=== PATIENT | female | born 1990 | race African-American/Black ===

== ENCOUNTER 2016-05-15 07:04 | Emergency (ER) | payer MEDICAID, OTHER ==
[2016-05-15 08:06] LABS: Bilirubin Negative (Negative); Blood, Urine Trace (Negative); Clarity Clear (Clear); Glucose, Urine (Dipstick) Negative (Negative); Leukocyte Small (Negative); Nitrite Negative (Negative); Protein, Urine (Dipstick) Negative (Neg-Trace); Specific Gravity, Urine 1.015 (1.005-1.030); Urobilinogen 0.2 mg/dL (0.2-1.0)
[2016-05-15 08:07] LABS: Wet Prep Clue Cells Clue Cells Absent (None Seen); Wet Prep Pathologist Review Spermatozoa Absent (None Seen); Wet Prep Spermatozoa 2nd Revie Agree with result (None Seen); Wet Prep Trichomonas Trichomonas PRESENT (None Seen)
[2016-05-15 08:08] LABS: Bacteria/HPF Rare-Few HPF (None Seen); RBC/HPF 0-3 HPF (0-3)
[2016-05-15 08:09] LABS: Pregnancy Test - Urine (BHCG) NEGATIVE (NEGATIVE); Pregu Control Background? CLEAR/WHITE (CLR/WHITE); Pregu Control Bar Appear? YES (CONTROL BAR)
[2016-05-15 08:10] LABS: Specific Gravity 1.015 (1.002-1.036)
[2016-05-15] MEDS ORDERED: cefTRIAXone\\ROCEPHIN 250 MG VIAL ONE (08:23)
[2016-05-15] MEDS ORDERED: metroNIDAZOLE 250 MG TAB ONE (08:23)
[2016-05-15] MEDS ORDERED: Azithromycin 250 MG TAB ONE (08:23)
[2016-05-15] MEDS ORDERED: Lidocaine 1% 20 ML MDV ONE (08:30)
--- NOTE | 2016-05-15 09:15 | ERRECORD ---
[facility] EMERGENCY RECORD HPI VAGINAL DISCHARGE (07:33 ABUS) CHIEF COMPLAINT: Patient presents for evaluation of vaginal discharge, Patient presents for evaluation of vaginal itching. HISTORIAN: History provided by patient, 26 yr old F with vaginal itching, yellowish color d/c, and pain at the opening. Denies any F/, N/V, rash, joint pain or swelling. Sexually active with 2 people both unprotected sex. No prior history of STDs. LOCATION: Symptoms are localized, Vaginal opening. QUALITY: Discharge described as, small amount, of yellow discharge, with pruritis, with foul odor, Pain is dull in nature, described as aching. SEVERITY: Currently symptoms are mild. TIME COURSE: There has been no change in the patient's symptoms over time, are constant. ASSOCIATED WITH: No associated symptoms. EXACERBATED BY: Patient's condition exacerbated by nothing. RELIEVED BY: Patient's condition relieved by nothing. ROS (07:35 ABUS) CONSTITUTIONAL: Negative constitutional review of systems, Historian denies chills, denies fever. CARDIOVASCULAR: Negative cardiovascular review of systems, Historian denies chest pain, denies palpitations. RESPIRATORY: Negative respiratory review of systems, Historian denies cough, denies shortness of breath. GI: Negative gastrointestinal review of systems, Historian denies abdominal pain, denies constipation, denies diarrhea, denies nausea, denies vomiting. GENITOURINARY FEMALE: Historian denies dysuria, denies frequency, reports vaginal discharge, reports vaginal itching. SKIN: Negative skin review of systems, Historian denies rash, denies skin changes. NEUROLOGIC: Negative neurologic review of systems, Historian denies headache. HEMO/LYMPHATIC: Normal hematologic/lymphatic system review, Historian denies abnormal blood clotting. PAST MEDICAL HISTORY (07:15 SFRE) MEDICAL HISTORY: Flu vaccine not up to date, Tetanus not up to date, Pneumococcal vaccine not up to date, Flu vaccine up to date, Date of immunization: 12/2014, Tetanus immunization up to date, Pneumococcal vaccine not up to date, Seizure history but not on medication. FEMALE SURGICAL HISTORY: VERIFIED 05-16-16, Surgical history of section, Date of surgery 2012, 2013,2014. PSYCHIATRIC HISTORY: Notes: VERIIED 05-16-16, No previous psychiatric history.BIPOLAR, SCHIZOPHRENIC. &a-1R&a+25V*p+0X*[id number]*c202B*c15G*c2P*p-0X&a-25V&a+1R Name: Clint Cueva : 1990 F26 MedRec: [id number] AcctNum: [id number] Prepared: SunMay 15, 2016 14:02 by Interface Page 1 of 4 pMD [facility] EMERGENCY RECORD SOCIAL HISTORY: Patient denies alcohol use, Patient denies drug use, Patient has no smoking history, Patient denies alcohol use, Patient denies drug use, Patient has no smoking history, Lives at home, with family, Patient denies alcohol use, Patient denies drug use, Patient has no smoking history. KNOWN ALLERGIES No Known Allergies (Unconfirmed) No Known Drug Allergies CURRENT MEDICATIONS (07:16 SFRE) None VITAL SIGNS VITAL SIGNS: BP: 107/66, Pulse: 80, Resp: 14, Temp: 98.4 (Oral), O2 sat: 100 on Room Air, Time: 05/15/2016 07:13. (07:13 SFRE) BP: 110/70, Pulse: 70, Resp: 14, Temp: 98.4, O2 sat: 100 on RA, Time: 05/15/2016 09:00. (09:00 JPER) PHYSICAL EXAM CONSTITUTIONAL: Vital signs reviewed, Patient afebrile, Pulse normal, Blood pressure normal, Respiratory rate normal, Patient appears non toxic, Patient appears pain free, Patient alert and oriented to person, place and time. (07:35 ABUS) NECK: Neck exam normal, Neck exam included findings of normal range of motion, Trachea midline, no meningeal signs, no cervical adenopathy, no tenderness. (07:35 ABUS) RESPIRATORY CHEST: Respiratory and chest exam normal, Respiratory exam included findings of no respiratory distress, Breath sounds clear. (07:35 ABUS) CARDIOVASCULAR: Cardiovascular assessment normal, Cardiovascular exam included findings of heart rate regular rate and rhythm, Heart sounds normal. (07:35 ABUS) ABDOMEN FEMALE: Abdominal exam included findings of abdomen nontender, Bowel sounds normal, no distension, no mass, no pulsatile masses, no peritoneal signs, no rigidity, no guarding, no rebound, Rovsing's sign absent. (07:35 ABUS) GENITOURINARY FEMALE: External genitalia normal, Genitourinary exam included findings of external genitalia normal, vaginal mucosa normal, Discharge present, white in color, small amount, + CMT but no adnexal tenderness; os appears normal. No vesicles. (07:36 ABUS) BACK: Back exam normal, Back exam included findings of normal inspection, range of motion normal, no tenderness. (07:35 ABUS) NEURO: Neuro exam normal, Neuro exam findings include patient oriented to person, place and time, Speech normal, Gait normal. (07:35 ABUS) SKIN: Skin exam normal, Skin exam included findings of skin warm, dry, and normal in color, no rash. (07:35 ABUS) &a-1R&a+25V*p+0X*[id number]*c202B*c15G*c2P*p-0X&a-25V&a+1R Name: Clint Cueva : 1990 F26 MedRec: [id number] AcctNum: [id number] Prepared: SunMay 15, 2016 14:02 by Interface Page 2 of 4 pMD [facility] EMERGENCY RECORD MEDICATION ADMINISTRATION SUMMARY Drug Name: Rocephin injection, Dose Ordered: 250 mg, Route: Intramuscular, Status: Given, Time: 08:33 05/15/2016, Drug Name: azithromycin oral, Dose Ordered: 1 g, Route: Oral, Status: Given, Time: 08:33 05/15/2016, Drug Name: metroNIDAZOLE oral, Dose Ordered: 500 mg, Route: Oral, Status: Given, Time: 08:32 05/15/2016, Detailed record available in Medication Service section. DOCTOR NOTES (07:36 ABUS) TEXT: 26 yr old F with vaginal itching, yellowish color d/c, and pain at the opening. Denies any F/, N/V, rash, joint pain or swelling. Sexually active with 2 people both unprotected sex. DDX: Gonorrhea, Chlamydia, Herpes, Cystitis, Urinary Tract Infection, Pyleonephritis, Nephrolithiasis, Urethritis, Dermatitis, Allergic Reaction PLAN: Rocephin, Azithro, Metrondizole, Flagyl, Analgesics, UA, GC PCR, wet prep DISPO: Pending results and response to treatment UPDATE/REASSESSMENT: Final Dispo: Discharge Home with regular follow up and return precautions. All results of testing and evaluation were shared with the patient who verbalized understanding and agreement with the plan of care. Level of Complexity / Medical Decision Making: Low Moderate High. PROBLEM LIST No recorded problems DIAGNOSIS (08:14 ABUS) FINAL: PRIMARY: Presumed STD, ADDITIONAL: TRICHOMONAL VULVOVAGINITIS. PRESCRIPTION (08:13 ABUS) metroNIDAZOLE oral: TABLET : 500 mg : ORAL : Quantity: 1 Unit: tab(s) Route: ORAL Schedule: 2 times a day Dispense: 14 Unit: tab(s) May substitute. Refills: No Refills . NOTES: No Refills. ibuprofen: TABLET : 800 mg : ORAL : Quantity: 800 Unit: mg Route: ORAL Schedule: every 8 hours PRN Dispense: 20 Unit: tab(s) May substitute. Refills: No Refills . NOTES: No Refills. DISPOSITION PATIENT: Disposition Type: Discharge, Disposition: *Discharge Home, Condition: Good. (08:14 ABUS) &a-1R&a+25V*p+0X*[id number]*c202B*c15G*c2P*p-0X&a-25V&a+1R Name: Clint Cueva : 1990 F26 MedRec: [id number] AcctNum: [id number] Prepared: SunMay 15, 2016 14:02 by Interface Page 3 of 4 pMD [facility] EMERGENCY RECORD Patient left the department. (09:06 NAIDA) Chinchilla: JESSICA=MD Thuy, Thom PASCAL=CANDACE Meier, Britni RAY=CANDACE Norris, Alisha &a-1R&a+25V*p+0X*[id number]*c202B*c15G*c2P*p-0X&a-25V&a+1R Name: Clint Cueva : 1990 F26 MedRec: [id number] AcctNum: [id number] Prepared: SunMay 15, 2016 14:02 by Interface Page 4 of 4 pMD [facility]
--- NOTE | 2016-05-15 09:21 | PICIS ---
[facility] EMERGENCY RECORD TRIAGE (07:15 SFRE) PATIENT: NAME: Clint Cueva, AGE: 26, GENDER: female, : Sun1990, TIME OF GREET: SunMay 15, 2016 07:05, PREFERRED LANGUAGE: Sami, RACE: Black or , ETHNICITY: Not or , FALL RISK: NO, ECODE BILLING MAP: [facility], SSN: [id number], Zip Code: [address], KG WEIGHT: 72.57, , , PERSON ID: [id number], PCP: MD AMARI, MARIAJOSE. (07:15 SFRE) PHONE: . (07:45) COMPLAINT: VAGINAL DISCHARGE. (07:15 SFRE) ADMISSION: URGENCY: 4 Non Urgent, ADMISSION SOURCE: Home, TRANSPORT: Walk-in, BED: ED -04. (07:15 SFRE) ASSESSMENT: Assessment: PT C/O VAG DISCHARGE; ITCHING; FOUL ODOR. (07:15 SFRE) PAIN: Location SORENESS TO AREA. (07:15 SFRE) SIRS SCORING: Heart Rate 55-109 (0), Temp range 96.8-101.1 (0), respiratory rate 12-24 (0), Mental Status altered: no (0). (07:15 SFRE) TRIAGE SCREENING: Patient denies suicidal ideation, Patient denies presence of domestic violence. (07:15 SFRE) LMP: Last menstrual period: 05/07/16. (07:15 SFRE) PROVIDERS: TRIAGE NURSE: Alisha Norris RN. (07:15 SFRE) VITAL SIGNS: BP 107/66, Pulse 80, Resp 14, Temp 98.4, (Oral), O2 Sat 100, on Room Air, Time 05/15/2016 07:13. (07:13 SFRE) PREVIOUS VISIT ALLERGIES: No Known Drug Allergies. (07:15 SFRE) KNOWN ALLERGIES No Known Allergies (Unconfirmed) No Known Drug Allergies CURRENT MEDICATIONS (07:16 SFRE) None VITAL SIGNS VITAL SIGNS: BP: 107/66, Pulse: 80, Resp: 14, Temp: 98.4 (Oral), O2 sat: 100 on Room Air, Time: 05/15/2016 07:13. (07:13 SFRE) BP: 110/70, Pulse: 70, Resp: 14, Temp: 98.4, O2 sat: 100 on RA, Time: 05/15/2016 09:00. (09:00 JPER) NURSING ASSESSMENT: GENITOURINARY (07:44 JPER) CONSTITUTIONAL: Patient arrives ambulatory, Gait steady, History obtained from patient, Patient appears comfortable, Patient cooperative, Patient alert, Oriented to person, place and time, Skin warm, Skin dry, Skin normal in color, Mucous membranes pink, Mucous membranes moist, Patient is well-groomed, Patient complains of VAGINAL DC X 5 DAYS. PAIN FEMALE: Patient rates pain as 0 out of 10. GENITOURINARY FEMALE: Female genitourinary assessment findings include external genitalia normal, Associated with vaginal discharge, moderate amount, of thick, &a-1R&a+25V*p+0X*g4604N*c202B*c15G*c2P*p-0X&a-25V&a+1R Name: Clint Cueva : 1990 F26 MedRec: [id number] AcctNum: [id number] Prepared: SunMay 15, 2016 14:08 by Interface Page 1 of 8 pMD [facility] RECORD yellow discharge, with a foul odor. ABDOMEN: Abdomen soft. NOTES: Emotional support needed and given. NURSING PROCEDURE: DISCHARGE NOTE (09:00 JPER) DISCHARGE: Patient discharged to home, ambulating without assistance, driving self, unaccompanied, Summary of Care printed/ provided, Patient requested and was provided an electronic copy of Discharge Instructions, Transition record given to patient, Discharge instructions given to patient, Prescriptions given and instructions on side effects given, Above person(s) verbalized understanding of discharge instructions and follow-up care, Patient treated and evaluated by physician. BELONGINGS: Belongings remain with patient, Valuables remain with patient. NOTES: Emotional support needed and given. VITAL SIGNS: BP: 110, / 70, Pulse: 70, Resp: 14, Temp: 98.4, O2 sat: 100, on: RA. ORDER DETAILS Order Name: GC/Chlamydia Profile by PCR, Status: Active, Time: 07:22 05/15/2016, User: ABUS, - Ordered for: MD Daley Anthony, - Entered by: MD Daley Anthony - [facility] May 15, 2016 07:22, - Quantity: 1, Order Name: Test, Urine (BHCG), Status: Active, Time: 07:23 05/15/2016, User: ABUS, - Ordered for: MD Daley Anthony, - Entered by: MD Daley Anthony - [facility] May 15, 2016 07:23, - Quantity: 1, Order Name: Urinalysis w/ Rflx Microscopic, Status: Active, Time: 07:23 05/15/2016, User: ABUS, - Ordered for: MD Daley Anthony, - Entered by: MD Daley Anthony - [facility] May 15, 2016 07:23, - Quantity: 1, Order Name: VP3, Status: Active, Time: 07:22 05/15/2016, User: ABUS, - Ordered for: MD Daley Anthony, - Entered by: MD Daley Anthony - [facility] May 15, 2016 07:22, - Quantity: 1, Order Name: Wet Prep, Status: Active, Time: 07:33 05/15/2016, User: ABUS, - Ordered for: MD Daley Anthony, - Entered by: MD Daley Anthony - [facility] May 15, 2016 07:33, - Quantity: 1. MEDICATION ADMINISTRATION SUMMARY Drug Name: Rocephin injection, Dose Ordered: 250 mg, Route: Intramuscular, Status: Given, Time: 08:33 05/15/2016, &a-1R&a+25V*p+0X*i2488N*c202B*c15G*c2P*p-0X&a-25V&a+1R Name: Clint Cueva : 1990 F26 MedRec: [id number] AcctNum: [id number] Prepared: SunMay 15, 2016 14:08 by Interface Page 2 of 8 pMD [facility] RECORD Drug Name: azithromycin oral, Dose Ordered: 1 g, Route: Oral, Status: Given, Time: 08:33 05/15/2016, Drug Name: metroNIDAZOLE oral, Dose Ordered: 500 mg, Route: Oral, Status: Given, Time: 08:32 05/15/2016, Detailed record available in Medication Service section. MEDICATION SERVICE azithromycin oral: Order: azithromycin oral (azithromycin) - Dose: 1 g : Oral Schedule: Now Ordered by: Thom Daley MD Entered by: Thom Daley MD SunMay 15, 2016 08:11 Documented as given by: Britni Meier RN SunMay 15, 2016 08:33 Patient, Medication, Dose, Route and Time verified prior to administration. Amount given: 1GM, Site: Medication administered P.O., Correct patient, time, route, dose and medication confirmed prior to administration, Patient advised of actions and side-effects prior to administration, Allergies confirmed and medications reviewed prior to administration, Administered by SANDRA MARIA. metroNIDAZOLE oral: Order: metroNIDAZOLE oral (metronidazole) - Dose: 500 mg : Oral Schedule: Now Ordered by: Thom Daley MD Entered by: Thom Daley MD SunMay 15, 2016 08:12 Documented as given by: Britni Meier RN SunMay 15, 2016 08:32 Patient, Medication, Dose, Route and Time verified prior to administration. Amount given: 500MG, Site: Medication administered P.O., Correct patient, time, route, dose and medication confirmed prior to administration, Patient advised of actions and side-effects prior to administration, Allergies confirmed and medications reviewed prior to administration, Administered by SANDRA MARIA. Rocephin injection: Order: Rocephin injection (ceftriaxone sodium) - Dose: 250 mg : Intramuscular Schedule: Now Ordered by: Thom Daley MD Entered by: Thom Daley MD SunMay 15, 2016 08:11 Documented as given by: Britni Meier RN SunMay 15, 2016 08:33 Patient, Medication, Dose, Route and Time verified prior to administration. IM antibiotic, Amount given: 250MG, Medication administered to left hip, Correct patient, time, route, dose and medication confirmed prior to administration, Patient advised of actions and side-effects prior to administration, Allergies confirmed and medications reviewed prior to administration, Administered by SANDRA MARIA. HPI VAGINAL DISCHARGE (07:33 ABUS) CHIEF COMPLAINT: Patient presents for evaluation of vaginal discharge, Patient presents for evaluation of vaginal &a-1R&a+25V*p+0X*q1287Z*c202B*c15G*c2P*p-0X&a-25V&a+1R Name: Clint Cueva : 1990 F26 MedRec: [id number] AcctNum: [id number] Prepared: SunMay 15, 2016 14:08 by Interface Page 3 of 8 pMD [facility] EM[facility] RECORD itching. HISTORIAN: History provided by patient, 26 yr old F with vaginal itching, yellowish color d/c, and pain at the opening. Denies any F/, N/V, rash, joint pain or swelling. Sexually active with 2 people both unprotected sex. No prior history of STDs. LOCATION: Symptoms are localized, Vaginal opening. QUALITY: Discharge described as, small amount, of yellow discharge, with pruritis, with foul odor, Pain is dull in nature, described as aching. SEVERITY: Currently symptoms are mild. TIME COURSE: There has been no change in the patient's symptoms over time, are constant. ASSOCIATED WITH: No associated symptoms. EXACERBATED BY: Patient's condition exacerbated by nothing. RELIEVED BY: Patient's condition relieved by nothing. ROS (07:35 ABUS) CONSTITUTIONAL: Negative constitutional review of systems, Historian denies chills, denies fever. CARDIOVASCULAR: Negative cardiovascular review of systems, Historian denies chest pain, denies palpitations. RESPIRATORY: Negative respiratory review of systems, Historian denies cough, denies shortness of breath. GI: Negative gastrointestinal review of systems, Historian denies abdominal pain, denies constipation, denies diarrhea, denies nausea, denies vomiting. GENITOURINARY FEMALE: Historian denies dysuria, denies frequency, reports vaginal discharge, reports vaginal itching. SKIN: Negative skin review of systems, Historian denies rash, denies skin changes. NEUROLOGIC: Negative neurologic review of systems, Historian denies headache. HEMO/LYMPHATIC: Normal hematologic/lymphatic system review, Historian denies abnormal blood clotting. PAST MEDICAL HISTORY (07:15 SFRE) MEDICAL HISTORY: Flu vaccine not up to date, Tetanus not up to date, Pneumococcal vaccine not up to date, Flu vaccine up to date, Date of immunization: 12/2014, Tetanus immunization up to date, Pneumococcal vaccine not up to date, Seizure history but not on medication. FEMALE SURGICAL HISTORY: VERIFIED 05-16-16, Surgical history of section, Date of surgery 2012, 2013,2014. PSYCHIATRIC HISTORY: Notes: VERIIED 05-16-16, No previous psychiatric history.BIPOLAR, SCHIZOPHRENIC. SOCIAL HISTORY: Patient denies alcohol use, Patient denies drug use, Patient has no smoking history, Patient denies alcohol use, Patient denies drug use, Patient has no smoking history, Lives at &a-1R&a+25V*p+0X*x9760H*c202B*c15G*c2P*p-0X&a-25V&a+1R Name: Clint Cueva : 1990 F26 MedRec: [id number] AcctNum: [id number] Prepared: SunMay 15, 2016 14:08 by Interface Page 4 of 8 pMD [facility] EMERGENCY RECORD home, with family, Patient denies alcohol use, Patient denies drug use, Patient has no smoking history. PHYSICAL EXAM CONSTITUTIONAL: Vital signs reviewed, Patient afebrile, Pulse normal, Blood pressure normal, Respiratory rate normal, Patient appears non toxic, Patient appears pain free, Patient alert and oriented to person, place and time. (07:35 ABUS) NECK: Neck exam normal, Neck exam included findings of normal range of motion, Trachea midline, no meningeal signs, no cervical adenopathy, no tenderness. (07:35 ABUS) RESPIRATORY CHEST: Respiratory and chest exam normal, Respiratory exam included findings of no respiratory distress, Breath sounds clear. (07:35 ABUS) CARDIOVASCULAR: Cardiovascular assessment normal, Cardiovascular exam included findings of heart rate regular rate and rhythm, Heart sounds normal. (07:35 ABUS) ABDOMEN FEMALE: Abdominal exam included findings of abdomen nontender, Bowel sounds normal, no distension, no mass, no pulsatile masses, no peritoneal signs, no rigidity, no guarding, no rebound, Rovsing's sign absent. (07:35 ABUS) GENITOURINARY FEMALE: External genitalia normal, Genitourinary exam included findings of external genitalia normal, vaginal mucosa normal, Discharge present, white in color, small amount, + CMT but no adnexal tenderness; os appears normal. No vesicles. (07:36 ABUS) BACK: Back exam normal, Back exam included findings of normal inspection, range of motion normal, no tenderness. (07:35 ABUS) NEURO: Neuro exam normal, Neuro exam findings include patient oriented to person, place and time, Speech normal, Gait normal. (07:35 ABUS) SKIN: Skin exam normal, Skin exam included findings of skin warm, dry, and normal in color, no rash. (07:35 ABUS) EVENTS TRANSFER: Triage to Emergency Main ED -04. (SunMay 15, 2016 07:15 SFRE) Removed from Emergency Main ED -04. (09:06 JPER) DOCTOR NOTES (07:36 ABUS) TEXT: 26 yr old F with vaginal itching, yellowish color d/c, and pain at the opening. Denies any F/, N/V, rash, joint pain or swelling. Sexually active with 2 people both unprotected sex. DDX: Gonorrhea, Chlamydia, Herpes, Cystitis, Urinary Tract Infection, Pyleonephritis, Nephrolithiasis, Urethritis, Dermatitis, Allergic Reaction PLAN: Rocephin, Azithro, Metrondizole, Flagyl, Analgesics, UA, GC PCR, wet prep DISPO: Pending results and response to treatment UPDATE/REASSESSMENT: &a-1R&a+25V*p+0X*e3545U*c202B*c15G*c2P*p-0X&a-25V&a+1R Name: Clint Cueva : 1990 F26 MedRec: [id number] AcctNum: [id number] Prepared: SunMay 15, 2016 14:08 by Interface Page 5 of 8 pMD [facility] EM[facility] RECORD Final Dispo: Discharge Home with regular follow up and return precautions. All results of testing and evaluation were shared with the patient who verbalized understanding and agreement with the plan of care. Level of Complexity / Medical Decision Making: Low Moderate High. PROBLEM LIST No recorded problems DIAGNOSIS (08:14 ABUS) FINAL: PRIMARY: Presumed STD, ADDITIONAL: TRICHOMONAL VULVOVAGINITIS. DISPOSITION PATIENT: Disposition Type: Discharge, Disposition: *Discharge Home, Condition: Good. (08:14 ABUS) Patient left the department. (09:06 JPER) INSTRUCTION (08:16 ABUS) DISCHARGE: TRICHOMONAS VAGINITIS, STD, SUSPECTED (CULTURE ONLY). FOLLOWUP: MD AMARIMARIAJOSE, [facility], [address] [place] [id number], [phone], Follow up with Primary Care Physician in 2-3 days. SPECIAL: Follow-up with your PCP or come back if you start to have worsening symptoms, fevers, nausea and vomiting. Please avoid sexual intercourse for at least 1 week and symptoms have completely resolved. It is important that you notify your partners to have them be seen and treated and to avoid sexual intercourse with them until they have been evaluated and treated. PRESCRIPTION (08:13 ABUS) metroNIDAZOLE oral: TABLET : 500 mg : ORAL : Quantity: 1 Unit: tab(s) Route: ORAL Schedule: 2 times a day Dispense: 14 Unit: tab(s) May substitute. Refills: No Refills . NOTES: No Refills. ibuprofen: TABLET : 800 mg : ORAL : Quantity: 800 Unit: mg Route: ORAL Schedule: every 8 hours PRN Dispense: 20 Unit: tab(s) May substitute. Refills: No Refills . NOTES: No Refills. IMAGING (09:03 JPER) *DISCHARGE INSTRUCTIONS RECEIPT: Image captured from scanner. *SUPPLY CHARGE SHEET: Image captured from scanner. ADMIN DIGITAL SIGNATURE: CANDACE Meier, Britni. (09:06 JPER) MD Thuy, Thom. (13:55 ABUS) &a-1R&a+25V*p+0X*b6834N*c202B*c15G*c2P*p-0X&a-25V&a+1R Name: HammadClint : 1990 F26 MedRec: [id number] AcctNum: [id number] Prepared: SunMay 15, 2016 14:08 by Interface Page 6 of 8 pMD [facility] EMERGENC[facility] RECORD RESULTS LABORATORY: Urine Microscopic Collection DT: SunMay 15, 2016 08:06, RBC/HPF 0-3 HPF, Range (0-3), *WBC/HPF 7-10 - H HPF, Range (0-3), *Squamous Epithelial 4-6 - H HPF, Range (0-3), Bacteria/HPF Rare-Few HPF, Range (None Seen). (08:10 ABUS) Urinalysis w/ Rflx Microscopic Collection DT: SunMay 15, 2016 08:06, Color Yellow , Range (Yellow), Clarity Clear , Range (Clear), Specific [place], Urine 1.015 , Range (1.005-1.030), pH, Urine 7.0 , Range (5.0-9.0), *Leukocyte Small - H , Range (Negative), Nitrite Negative , Range (Negative), Protein, Urine (Dipstick) Negative mg/dL, Range (Neg-Trace), Glucose, Urine (Dipstick) Negative mg/dL, Range (Negative), Ketone, Urine Negative mg/dL, Range (Negative), Urobilinogen 0.2 mg/dL, Range (0.2-1.0), Bilirubin Negative , Range (Negative), *Blood, Urine Trace - H , Range (Negative). (08:10 ABUS) Wet Prep Collection DT: SunMay 15, 2016 08:06, Wet Prep Trichomonas Trichomonas PRESENT , Range (None Seen), Wet Prep Clue Cells Clue Cells Absent , Range (None Seen), Wet Prep Budding Yeast BudYeas/Hyph Absent , Range (None Seen), Wet Prep Spermatozoa Spermatozoa Absent , Range (None Seen), Wet Prep Pathologist Review Spermatozoa Absent , Range (None Seen), Wet Prep Source Vaginal , Sexual Assault Suspected No . (08:10 ABUS) Test, Urine (BHCG) Collection DT: SunMay 15, 2016 08:09, Test - Urine (BHCG) NEGATIVE , Range (NEGATIVE), Method of sensitivity- Indeterminant: results should be repeated, after 48 hours. Positive: results may be detected as early as 4-5 days before a first missed menses. Elimination of BHCG-, Elimination following first trimester D&C: 29-44 Days , Elimination following term : 8-24 Days , Specific [place] 1.015 , Range (1.002-1.036), A dilute urine specimen may, not contain sales representative publications levels of hCG. If is still, suspected, a first morning urine specimen OR a random blood specimen should, be obtained from the patient 48-72 hours later and re-tested. , . (08:12 ABUS) &a-1R&a+25V*p+0X*a2197Q*c202B*c15G*c2P*p-0X&a-25V&a+1R Name: Clint Cueva : 1990 6 MedRec: [id number] AcctNum: [id number] Prepared: SunMay 15, 2016 14:08 by Interface Page 7 of 8 pMD [facility] RECORD Chinchilla: JESSICA=MD Thuy, Thom PASCAL=CANDACE Meier, Britni RAY=CANDACE Norris, Alisha &a-1R&a+25V*p+0X*x9257P*c202B*c15G*c2P*p-0X&a-25V&a+1R Name: Clint Cueva : 1990 F26 MedRec: [id number] AcctNum: [id number] Prepared: SunMay 15, 2016 14:08 by Interface Page 8 of 8 pMD MTDD
[2016-05-16 17:22] LABS: Chlamydia by PCR Not Detected (NotDetected); GC by PCR Not Detected (NotDetected)
== END 2016-05-15 09:00 | disposition home or self-care (01) ==
LOC: MADERS 07:04
DX: A59.01 Trichomonal vulvovaginitis (principal); F31.9 Bipolar disorder, unspecified; F20.9 Schizophrenia, unspecified
CPT/HCPCS: 81003; 81015; 81025; 87210; 87480; 87491; 87510; 87591; 87660; 96372; J0696; J2001

== ENCOUNTER 2016-07-31 14:13 | Emergency (ER) | payer MEDICAID, SELFPAY ==
[2016-07-31] MEDS ORDERED: AMOXicillin 250 MG CAP ONE (14:51)
[2016-07-31] MEDS ORDERED: Naproxen 500 MG TAB ONE (14:51)
[2016-07-31] MEDS ORDERED: HYDROcodone/Acetaminophen 10/325 mg Tablet ONE (14:51)
== END 2016-07-31 15:39 | disposition home or self-care (01) ==
LOC: MADERS 14:13
DX: K04.7 Periapical abscess without sinus (principal); R51 Headache; F20.9 Schizophrenia, unspecified; F31.9 Bipolar disorder, unspecified
CPT/HCPCS: 99283

== ENCOUNTER 2016-09-14 19:43 | Emergency (ER) | payer SELFPAY ==
[2016-09-14 20:36] LABS: #Eosinphils 0.1 thou/uL (0.0-0.7); #Lymphocytes 1.3 thou/uL (1.20-3.40); #Monocytes 0.5 thou/uL (0.11-0.59); #Neutrophils 4.2 thou/uL (1.40-6.50); %Basophils 0.7 % (0.0-1.0); %Eosinophils 2.4 % (0.0-10.0); %Lymphocytes 21.7 % (21.0-51.0); %Monocytes 7.4 % (0.0-10.0); %Neutrophils 67.9 % (42.0-75.0); Mean Corpuscular HGB CONC 34.2 g/dL (32.0-36.0); Mean Corpuscular Hemoglobin 28.9 pg (27.0-31.0); Mean Corpuscular Volume 84.5 fl (81.0-99.0); Mean Platelet Volume 9.8 fL (7.4-10.4); Platelet Count 234 thou/uL (130-400); RBC Distribution Width 14.3 % (11.5-14.5); Red Blood Cell (RBC) Count 4.14 mill/uL (4.20-5.40); White Blood Cell (WBC) Count 6.2 thou/uL (4.8-10.8)
[2016-09-14 20:39] LABS: Pregnancy Test - Urine (BHCG) NEGATIVE (NEGATIVE); Pregu Control Bar Appear? YES (CONTROL BAR)
== END 2016-09-14 21:10 | disposition home or self-care (01) ==
LOC: MADERS 19:43
DX: N94.6 Dysmenorrhea, unspecified (principal); F31.9 Bipolar disorder, unspecified; F20.9 Schizophrenia, unspecified
CPT/HCPCS: 36415; 81025; 85025; 99284

== ENCOUNTER 2017-01-11 09:52 | Emergency (ER) | payer SELFPAY | END 2017-01-11 10:30 | disposition home or self-care (01) | LOC: MADERS 09:52 | DX: J02.9 Acute pharyngitis, unspecified (principal); B30.9 Viral conjunctivitis, unspecified; J45.909 Unspecified asthma, uncomplicated; F31.9 Bipolar disorder, unspecified; F20.9 Schizophrenia, unspecified | CPT/HCPCS: 99282 ==

== ENCOUNTER 2017-03-25 14:09 | Emergency (ER) | payer SELFPAY ==
[2017-03-25] MEDS ORDERED: Ibuprofen 800 MG TAB ONE (15:10)
[2017-03-25] MEDS ORDERED: cefTRIAXone\\ROCEPHIN 1 GM VIAL ONE (15:10)
[2017-03-25] MEDS ORDERED: Lidocaine 1% 20 ML MDV ONE (15:11)
== END 2017-03-25 15:25 | disposition home or self-care (01) ==
LOC: MADERS 14:09
DX: J02.0 Streptococcal pharyngitis (principal); F20.9 Schizophrenia, unspecified; F31.9 Bipolar disorder, unspecified; J45.909 Unspecified asthma, uncomplicated
CPT/HCPCS: 96372; J0696; J2001

== ENCOUNTER 2017-06-21 16:32 | Emergency (ER) | payer SELFPAY ==
[2017-06-21 17:38] LABS: Pregnancy Test - Urine (BHCG) Negative (Negative); Pregu Control Background? CLEAR/WHITE (CLR/WHITE); Pregu Control Bar Appear? YES (CONTROL BAR); Specific Gravity 1.012 (1.002-1.036)
== END 2017-06-21 18:15 | disposition home or self-care (01) ==
LOC: MADERS 16:32
DX: N93.9 Abnormal uterine and vaginal bleeding, unspecified (principal); J45.909 Unspecified asthma, uncomplicated
CPT/HCPCS: 81025; 99284

== ENCOUNTER 2018-05-30 08:29 | Emergency (ER) | payer BC, SELFPAY ==
[2018-05-30] MEDS ORDERED: Ondansetron ODT 4 MG TAB ONE (09:08)
== END 2018-05-30 09:18 | disposition home or self-care (01) ==
LOC: MADERS 08:29
DX: R11.2 Nausea with vomiting, unspecified (principal); J45.909 Unspecified asthma, uncomplicated; F20.9 Schizophrenia, unspecified
CPT/HCPCS: 99283; Q0162

== ENCOUNTER 2018-10-25 15:59 | Emergency (ER) | payer BC ==
[2018-10-25] MEDS ORDERED: Ondansetron ODT 4 MG TAB ONE (16:41)
[2018-10-25 16:57] LABS: Bilirubin Negative (Negative); Blood, Urine Large (Negative); Clarity Clear (Clear); Glucose, Urine (Dipstick) Negative (Negative); Leukocyte Small (Negative); Nitrite Negative (Negative); Protein, Urine (Dipstick) Negative (Neg-Trace); Urobilinogen 0.2 mg/dL (0.2-1.0)
[2018-10-25 16:59] LABS: Pregnancy Test - Urine (BHCG) Negative (Negative)
[2018-10-25 17:00] LABS: Pregu Control Background? CLEAR/WHITE (CLR/WHITE); Pregu Control Bar Appear? YES (CONTROL BAR); Specific Gravity 1.006 (1.002-1.036)
[2018-10-25 17:20] LABS: Bacteria/HPF Rare-Few HPF (None Seen); Hyaline Casts/LPF NONE SEEN LPF (0-3 Hyaline)
== END 2018-10-25 17:10 | disposition home or self-care (01) ==
LOC: MADERS 15:59
DX: R35.0 Frequency of micturition (principal); R11.0 Nausea; F31.9 Bipolar disorder, unspecified; F20.9 Schizophrenia, unspecified
CPT/HCPCS: 81003; 81015; 81025; 99283; Q0162

== ENCOUNTER 2019-01-07 16:19 | Emergency (ER) | payer BC | END 2019-01-07 16:50 | disposition home or self-care (01) | LOC: MADERS 16:19 | DX: R05 Cough (principal) | CPT/HCPCS: 99281 ==

== ENCOUNTER 2020-02-05 15:36 | Emergency (ER) | payer BC, SELFPAY ==
[2020-02-05] MEDS ORDERED: Ketorolac Tromethamine 30 MG/ML VIAL ONE (16:21)
[2020-02-05] MEDS ORDERED: Ondansetron ODT 4 MG TAB ONE (16:21)
[2020-02-05 16:40] LABS: Pregnancy Test - Urine (BHCG) Negative (Negative); Pregu Control Background? CLEAR/WHITE (CLR/WHITE); Pregu Control Bar Appear? YES (CONTROL BAR); Specific Gravity 1.017 (1.002-1.036)
== END 2020-02-05 17:05 | disposition home or self-care (01) ==
LOC: MADERS 15:36
DX: G43.919 Migraine, unspecified, intractable, without status migrainosus (principal); F31.9 Bipolar disorder, unspecified; F20.9 Schizophrenia, unspecified; H53.149 Visual discomfort, unspecified
CPT/HCPCS: 81025; 96372; 99283; J1885; Q0162

== ENCOUNTER 2020-08-21 11:20 | Emergency (ER) | payer BC, SELFPAY ==
[2020-08-21 11:45] LABS: Bilirubin Negative (Negative); Blood, Urine Trace (Negative); Clarity Hazy (Clear); Glucose, Urine (Dipstick) Negative (Negative); Ketone, Urine Negative (Negative); Leukocyte Negative (Negative); Nitrite Negative (Negative); Protein, Urine (Dipstick) Negative (Neg-Trace); Specific Gravity, Urine 1.025 (1.005-1.030); Urobilinogen 0.2 mg/dL (Less than 2); pH, Urine 5.5 (5.0-9.0)
[2020-08-21 11:46] LABS: Pregnancy Test - Urine (BHCG) Negative (Negative)
[2020-08-21 11:47] LABS: Pregu Control Background? CLEAR/WHITE (CLR/WHITE); Pregu Control Bar Appear? YES (CONTROL BAR); Specific Gravity 1.025 (1.002-1.036)
[2020-08-21] MEDS ORDERED: Ondansetron ODT 4 MG TAB ONE (11:47)
[2020-08-21 11:53] LABS: Bacteria/HPF Rare-Few HPF (None Seen)
== END 2020-08-21 12:30 | disposition home or self-care (01) ==
LOC: MADERS 11:20
DX: R11.2 Nausea with vomiting, unspecified (principal); G43.909 Migraine, unspecified, not intractable, without status migrainosus; E66.9 Obesity, unspecified
CPT/HCPCS: 81003; 81015; 81025; 99284; Q0162

== ENCOUNTER 2020-12-12 13:10 | Emergency (ER) | payer BC, SELFPAY ==
[2020-12-12] MEDS ORDERED: Ondansetron ODT 4 MG TAB ONE (13:44)
== END 2020-12-12 14:00 | disposition home or self-care (01) ==
LOC: MADERS 13:10
DX: K52.9 Noninfective gastroenteritis and colitis, unspecified (principal); E66.9 Obesity, unspecified; G43.909 Migraine, unspecified, not intractable, without status migrainosus; F17.200 Nicotine dependence, unspecified, uncomplicated
CPT/HCPCS: 99283; Q0162

== ENCOUNTER 2021-01-18 16:15 | Emergency (ER) | payer BC ==
[2021-01-18] MEDS ORDERED: Acetaminophen 500 MG TAB ONE (17:52)
== END 2021-01-18 18:05 | disposition home or self-care (01) ==
LOC: MADERS 16:15
DX: R51.9 Headache, unspecified (principal); R42 Dizziness and giddiness; R11.2 Nausea with vomiting, unspecified; E66.9 Obesity, unspecified; F17.200 Nicotine dependence, unspecified, uncomplicated; V49.9XXA Car occupant (driver) (passenger) injured in unspecified traffic accident, initial encounter; Y92.410 Unspecified street and highway as the place of occurrence of the external cause
CPT/HCPCS: 99283

== ENCOUNTER 2021-06-27 08:42 | Emergency (ER) | payer BC ==
[2021-06-27] MEDS ORDERED: cefTRIAXone\\ROCEPHIN 500 MG VIAL ONE (09:35)
[2021-06-27 09:48] LABS: Pregnancy Test - Urine (BHCG) Negative (Negative); Pregu Control Background? CLEAR/WHITE (CLR/WHITE); Pregu Control Bar Appear? YES (CONTROL BAR); Specific Gravity 1.012 (1.002-1.036)
[2021-06-27 19:29] LABS: Chlamydia by PCR Not Detected (NotDetected); GC by PCR Not Detected (NotDetected)
== END 2021-06-27 10:22 | disposition home or self-care (01) ==
LOC: MADERS 08:42
DX: N89.8 Other specified noninflammatory disorders of vagina (principal); F17.290 Nicotine dependence, other tobacco product, uncomplicated; E66.9 Obesity, unspecified; Z68.45 Body mass index [BMI] 70 or greater, adult
CPT/HCPCS: 81025; 87480; 87491; 87510; 87591; 87660; 96372; 99283; J0696

== ENCOUNTER 2022-05-20 21:31 | Emergency (ER) | payer BC, SELFPAY ==
[2022-05-20 22:08] LABS: Bilirubin Negative (Negative); Blood, Urine Large (Negative); Clarity Clear (Clear); Glucose, Urine (Dipstick) Negative (Negative); Ketone, Urine Negative (Negative); Leukocyte Negative (Negative); Nitrite Negative (Negative); Protein, Urine (Dipstick) Negative (Neg-Trace); Specific Gravity, Urine 1.025 (1.005-1.030); Urobilinogen 0.2 mg/dL (Less than 2)
[2022-05-20] MEDS ORDERED: Sodium Chloride 0.9% 1,000 ML ONE (22:08)
[2022-05-20] MEDS ORDERED: Ketorolac Tromethamine 30 MG/ML VIAL ONE (22:09)
[2022-05-20] MEDS ORDERED: Dexamethasone 10 MG/ML VIAL ONE (22:09)
[2022-05-20] MEDS ORDERED: Ondansetron PF 4 MG/2 ML Vial ONE (22:09)
[2022-05-20 22:11] LABS: Pregnancy Test - Urine (BHCG) Negative (Negative); Pregu Control Background? CLEAR/WHITE (CLR/WHITE); Pregu Control Bar Appear? YES (CONTROL BAR); Specific Gravity 1.016 (1.002-1.036)
[2022-05-20 22:16] LABS: Bacteria/HPF Rare-Few HPF (None Seen); Squamous Epithelial 0-3 HPF (0-3); WBC/HPF 0-3 HPF (0-3)
[2022-05-20] MEDS ORDERED: SUMAtriptan Succinate 6 MG/0.5 ML VIAL ONE (23:13)
== END 2022-05-20 23:52 | disposition home or self-care (01) ==
LOC: MADERS 21:31
DX: G43.909 Migraine, unspecified, not intractable, without status migrainosus (principal); E66.9 Obesity, unspecified; F17.200 Nicotine dependence, unspecified, uncomplicated
CPT/HCPCS: 70450; 81003; 81015; 81025; 96372; 96374; 96375; J1100; J1885; J2405; J3030; J7050

== ENCOUNTER 2024-02-16 09:37 | Emergency (ER) | payer OTHER ==
[2024-02-16 10:10] LABS: Bilirubin Negative (Negative); Blood, Urine Negative (Negative); Glucose, Urine (Dipstick) Negative (Negative); Ketone, Urine Negative (Negative); Leukocyte Negative (Negative); Nitrite Negative (Negative); Protein, Urine (Dipstick) Negative (Neg-Trace); Urobilinogen 0.2 mg/dL (Less than 2)
[2024-02-16 10:12] LABS: Clarity Hazy (Clear)
[2024-02-16 10:13] LABS: Pregnancy Test - Urine (BHCG) Negative (Negative); Pregu Control Background? CLEAR/WHITE (CLR/WHITE); Pregu Control Bar Appear? YES (CONTROL BAR)
[2024-02-16 10:16] LABS: Bacteria/HPF Rare-Few HPF (None Seen); CAUTI Indications for Culture Pelvic or flank pain; Mucous/LPF Few LPF (<2+); RBC/HPF 0-3 HPF (0-3); WBC/HPF None Seen HPF (0-3)
[2024-02-16 10:17] LABS: Urine Culture Reflex No No
[2024-02-16] MEDS ORDERED: Ketorolac Tromethamine 30 MG (1 mL) VIAL ONE (10:58)
== END 2024-02-16 11:09 | disposition home or self-care (01) ==
LOC: MADERS 09:37
DX: S39.012A Strain of muscle, fascia and tendon of lower back, initial encounter (principal); F17.290 Nicotine dependence, other tobacco product, uncomplicated; X50.0XXA Overexertion from strenuous movement or load, initial encounter
CPT/HCPCS: 81001; 81025; 96372; 99283; J1885

== ENCOUNTER 2024-02-26 17:41 | Emergency (ER) | payer OTHER ==
[2024-02-26 18:29] LABS: #Basophils 0.1 thou/uL (0.0-0.2); #Eosinophils 0.2 thou/uL (0.0-0.7); #Lymphocytes 2.5 thou/uL (1.20-3.40); #Monocytes 0.5 thou/uL (0.11-0.59); #Neutrophils 3.4 thou/uL (1.40-6.50); %Basophils 1.8 % (0.0-1.0); %Lymphocytes 37.7 % (21.0-51.0); %Monocytes 6.8 % (0.0-10.0); %Neutrophils 50.8 % (42.0-75.0); Hematocrit 39.3 % (36.0-47.0); Hemoglobin 13.4 g/dL (12.0-16.0); Mean Corpuscular Hemoglobin 29.5 pg (27.0-31.0); Mean Corpuscular Volume 86.7 fl (78.0-98.0); Mean Platelet Volume 9.1 fL (7.4-10.4); Platelet Count 388 10x3/uL (130-400); RBC Distribution Width 11.7 % (11.5-14.5); Red Blood Cell (RBC) Count 4.54 mill/uL (4.20-5.40); White Blood Cell (WBC) Count 6.7 10x3/uL (4.8-10.8)
[2024-02-26 18:30] LABS: Pregnancy Test - Urine (BHCG) Negative (Negative); Pregu Control Background? CLEAR/WHITE (CLR/WHITE); Pregu Control Bar Appear? YES (CONTROL BAR); Specific Gravity 1.033 (1.002-1.036)
[2024-02-26 18:51] LABS: ALT (SGPT) 14 U/L (8-55); AST (SGOT) 12 U/L (5-34); Albumin 3.9 g/dL (3.5-5.0); Alkaline Phosphatase 62 U/L (40-110); Anion Gap 15 mmol/L (10-20); BUN (Urea Nitrogen) 16 mg/dL (7.0-18.7); Bilirubin, Total 0.5 mg/dL (0.2-1.2); Calc. Creatinine Clearance 0 mL/min (70-130); Calcium 9.3 mg/dL (7.8-10.44); Carbon Dioxide 18 mmol/L (22-29); Chloride 111 mmol/L (98-107); Estimated GFR 84; Globulin 3.2 g/dL (2.4-3.5); Glucose 107 mg/dL (70-105); Potassium 3.3 mmol/L (3.5-5.1); Protein, Total 7.1 g/dL (6.0-8.3)
[2024-02-26 19:18] LABS: Sodium 141 mmol/L (136-145)
== END 2024-02-26 18:50 | disposition home or self-care (01) ==
LOC: MADERS 17:41
DX: N93.8 Other specified abnormal uterine and vaginal bleeding (principal); R03.0 Elevated blood-pressure reading, without diagnosis of hypertension; F17.290 Nicotine dependence, other tobacco product, uncomplicated
CPT/HCPCS: 36415; 80053; 81025; 85025; 99284